=== PATIENT | male | born 1990 | race Caucasian/White ===

== ENCOUNTER 2016-10-23 22:16 | Emergency (ER) | payer SELFPAY ==
[2016-10-23] MEDS ORDERED: Ondansetron HCl/PF 4 MG/2 ML Vial ONE (22:40)
[2016-10-23] MEDS ORDERED: Ketorolac Tromethamine 30 MG/ML VIAL ONE (22:40)
[2016-10-23 23:16] LABS: #Basophils 0.2 thou/uL (0.0-0.2); #Eosinphils 0.2 thou/uL (0.0-0.7); #Lymphocytes 2.7 thou/uL (1.20-3.40); %Basophils 2.2 % (0.0-1.0); %Eosinophils 1.9 % (0.0-10.0); %Monocytes 8.7 % (0.0-10.0); Hematocrit 42.7 % (42.0-52.0); Mean Platelet Volume 7.8 fL (7.4-10.4); Red Blood Cell (RBC) Count 5.03 mill/uL (4.70-6.10); White Blood Cell (WBC) Count 11.2 thou/uL (4.8-10.8)
[2016-10-23 23:32] LABS: ALT (SGPT) 26 U/L (0-55); AST (SGOT) 31 U/L (5-34); Alkaline Phosphatase 61 U/L (40-150); Anion Gap 14 mmol/L (10-20); BUN (Urea Nitrogen) 19 mg/dL (8.9-20.6); Bilirubin, Total 0.4 mg/dL (0.2-1.2); Calc. Creatinine Clearance 0 mL/min (70-130); Calcium 9.3 mg/dL (7.8-10.44); Carbon Dioxide 26 mmol/L (22-29); Chloride 103 mmol/L (98-107); Estimated GFR-MDRD 72; Globulin 3.5 g/dL (2.4-3.5); Lipase 16 U/L (8-78); Protein, Total 7.7 g/dL (6.0-8.3)
--- NOTE | 2016-10-24 06:55 | CT ---
PRELIMINARY REPORT/[facility]/EMERGENCY AFTER HOURS PROCEDURE: EXAM: CT Abdomen and Pelvis Without Intravenous Contrast. CLINICAL HISTORY: 26 years old, male; Pain; Abdominal pain; Flank; Left; Patient HX: Pt presents to the er for left fl ank pain x 1 hour. Started in back and radiates to front. Patient reports vomiting. Denies urinary c omplaints. TECHNIQUE: Axial computed tomography images of the abdomen and pelvis without intravenous contrast. Coronal reformatted images were created and reviewed. EXAM DATE/TIME: 10/23/2016 11:21 PM COMPARISON: No relevant prior studies available. FINDINGS: Lower thorax: No acute findings. ABDOMEN: Liver: Unremarkable. Gallbladder and bile ducts: Unremarkable. No calcified stones. No ductal dilation. Pancreas: Unremarkable. No ductal dilation. Spleen: Unremarkable. No splenomegaly. Adrenals: Unremarkable. No mass. Kidneys and ureters: Small 2 mm stone in left bladder. Moderate left renal collecting system dilatat ion and perinephric fat stranding. Stomach and bowel: Unremarkable. No obstruction. No mucosal thickening. Appendix: Visualized portions of appendix appear normal. PELVIS: Bladder: Unremarkable. No stones. Reproductive: Prostate appears within normal limits. ABDOMEN and PELVIS: Intraperitoneal space: Unremarkable. No free air. No significant fluid collection. Bones/joints: No acute fracture. No dislocation. Soft tissues: Unremarkable. Vasculature: Unremarkable. No abdominal aortic aneurysm. Lymph nodes: Unremarkable. No enlarged lymph nodes. IMPRESSION: Small 2 mm excreted renal stone in left bladder. 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 Thank you for allowing us to participate in the care of your patient. Dictated and Authenticated by: Soheila Orta MD 10/23/2016 11:51 PM Central Time ([place] \T\ Ran) FINAL REPORT CT ABDOMEN AND PELVIS WITHOUT CONTRAST 10/23/[address] of the abdomen and pelvis was performed for evaluation of left flank pain. Axial slices w ere acquired after getting no oral or IV contrast in a renal stone protocol. Coronal reconstruction s were done. There is a tiny 2-mm calculus either at the left UVJ or just recently extruded into the urinary blad woody. It is causing moderately severe left hydronephrosis. No residual renal calculi were seen on e ither side. The lung bases were clear. The liver, spleen, pancreas, gallbladder, adrenal glands, and abdominal aorta all appear normal within the limitations of a noncontrast study. The bowel is nondistended. There are no inflammatory changes around bowel. There is no sign of munira endicitis or diverticulitis. A few extra nodes are seen in the mesentery but not enough to be of co ncern. CT of the pelvis shows no pelvic masses, inflammatory changes, or fluid collections. I would note t hat there is some broad concentric bulging of the L3-L4 and L4-L5 disks. IMPRESSION: A 2-mm calculus at the left UVJ or perhaps recently just extruded into the urinary bladder. There i s resulting left hydronephrosis of a moderately severe degree. Report in agreement with preliminary reading by Annabelle. POS: HOME
== END 2016-10-24 00:04 | disposition home or self-care (01) ==
LOC: BURERS 22:16
DX: N13.2 Hydronephrosis with renal and ureteral calculous obstruction (principal)
CPT/HCPCS: 74176; 80053; 83690; 85025; 96361; 96374; 96375; J1885; J2270; J2405

== ENCOUNTER 2019-10-13 10:55 | Emergency (ER) | payer BC, SELFPAY | END 2019-10-13 11:08 | disposition home or self-care (01) | LOC: BURERS 10:55 | DX: J11.1 Influenza due to unidentified influenza virus with other respiratory manifestations (principal) | CPT/HCPCS: 99283 ==

== ENCOUNTER 2020-04-28 15:44 | Emergency (ER) | payer BC, SELFPAY ==
[2020-04-28] MEDS ORDERED: Ibuprofen 200 MG TAB ONE (16:10)
== END 2020-04-28 17:00 | disposition home or self-care (01) ==
LOC: BURERS 15:44
DX: J02.9 Acute pharyngitis, unspecified (principal)
CPT/HCPCS: 87081; 87430; 99283

== ENCOUNTER 2020-06-08 15:22 | Emergency (ER) | payer OTHER, SELFPAY ==
[2020-06-09 15:52] LABS: SARS-CoV-2 by NAA DETECTED (NotDetected); SARS-CoV-2 orf1ab Positive
[2020-06-09 15:53] LABS: SARS-CoV-2 MS2 Negative; SARS-CoV-2 N Gene Positive; SARS-CoV-2 S Gene Positive
== END 2020-06-08 16:01 | disposition home or self-care (01) ==
LOC: BURERS 15:22
DX: U07.1 COVID-19 (principal); J06.9 Acute upper respiratory infection, unspecified
CPT/HCPCS: 87635; 87804; 99284; U0003

== ENCOUNTER 2022-06-16 18:24 | Emergency (ER) | payer BC, SELFPAY | END 2022-06-16 18:43 | disposition home or self-care (01) | LOC: BURERS 18:24 | DX: J06.9 Acute upper respiratory infection, unspecified (principal) | CPT/HCPCS: 99283 ==

== ENCOUNTER 2022-07-27 22:06 | Emergency (ER) | payer BC ==
[2022-07-28] MEDS ORDERED: Dexamethasone 4 MG TAB ONE (01:25)
== END 2022-07-28 01:43 | disposition home or self-care (01) ==
LOC: BURERS 22:06
DX: R05.9 Cough, unspecified (principal)
CPT/HCPCS: 71045; 87081; 87430; 87804; J8540

== ENCOUNTER 2023-06-08 13:04 | Emergency (ER) | payer BC | END 2023-06-08 13:38 | disposition home or self-care (01) | LOC: BURERS 13:04 | DX: J01.90 Acute sinusitis, unspecified (principal) | CPT/HCPCS: 99283 ==